=== PATIENT | male | born 1950 | race Caucasian/White ===

== ENCOUNTER → 2018-01-13 | Outpatient (CLI) | payer MEDICARE ==
[~2018-01-13] MED LIST: CODE30TA3 PO; CYCL-259 PO; DIAZ5TAB PO; FURO40TA6 PO; HYDR-3241 PO; LEVO500T47 PO; LISI-170 PO; METH4TAB2 PO; METO50TA82 PO; MORP-52 PO; NAPR250T PO; OMNIPAQUE 350 MG/ML, 100ML BOTTLE ONE; POTA10TA5 PO
== END | disposition home or self-care (01) ==
LOC: CFH 14:02
PROVIDERS: ATTEND Internal Medicine Cardiovascular Disease
DX: M48.54XA Collapsed vertebra, not elsewhere classified, thoracic region, initial encounter for fracture (principal); I37.1 Nonrheumatic pulmonary valve insufficiency; I10 Essential (primary) hypertension; E78.5 Hyperlipidemia, unspecified; Z95.2 Presence of prosthetic heart valve
CPT/HCPCS: 74175; 82565; 93306; Q9967

== ENCOUNTER 2019-01-10 05:56 | Emergency (ER) | payer MEDICARE ==
[~2019-01-10] VITALS: Ht 182.9 cm; Wt 90.0 kg
[~2019-01-10 05:56] MED LIST changes: +AMLO10TA8 PO; +ASPI-496 PO; +ATOR20TA37 PO; +CHOL40002 PO; +DOCU100T6 PO; +GABA300C10 PO; +LISI40TA PO; +MELO7.5T31 PO; -OMNIPAQUE 350 MG/ML, 100ML BOTTLE ONE; +OXYC5CAP2 PO; +TRAM50TA2 PO; +TRAZ-137 PO
[2019-01-10] MEDS ORDERED: FAMOTIDINE 20 MG/2 ML IV ONE (06:00)
[2019-01-10] MEDS ORDERED: SODIUM CHLORIDE 0.9% 1,000ML IVBOLUS ONE (06:00)
[2019-01-10] MEDS ORDERED: METOCLOPRAMIDE 5 MG/ML, 2ML IVPush ONE (06:00)
[2019-01-10] MEDS ORDERED: METOCLOPRAMIDE 5 MG/ML, 2ML ONE (06:05)
[2019-01-10] MEDS ORDERED: FAMOTIDINE 20 MG/2 ML ONE (06:05)
[2019-01-10 06:48] LABS: MEAN CORPUSCULAR HEMOGLOBIN 33.5 pg (27.5-34.5); MEAN CORPUSCULAR HGB CONC 33.1 g/dL (33.2-36.2); MEAN CORPUSCULAR VOLUME 101.3 fL (81-97); MEAN PLATELET VOLUME 6.9 fL (7.4-10.4); PLATELET COUNT 277 x10^3/uL (130-400); RED BLOOD COUNT 4.02 x10^6/uL (4.38-5.82); RED CELL DISTRIBUTION WIDTH 15.4 % (9.4-14.8)
--- NOTE | 2019-01-10 06:55 | NUR ---
Recieved report from MITALI Moctezuma. All questions answered. Assuming care of pt at this time.
--- NOTE | 2019-01-10 06:55 | NUR ---
PT WITH BEDSIDE CAMODE AND URINAL AT BEDSIDE. PT INFORMED OF THE NEED FOR STOOL AND URINE SAMPLES
[2019-01-10 07:01] LABS: ALANINE AMINOTRANSFERASE 14 U/L (12-78); ALBUMIN 3.3 g/dL (3.4-5.0); ANION GAP 8 mmol/L (5-15); CHLORIDE 107 mmol/L (98-107); CREATININE 1.07 mg/dL (0.7-1.3)
[2019-01-10 07:05] LABS: ALKALINE PHOSPHATASE 74 U/L (45-117); TOTAL PROTEIN 7.3 g/dL (6.4-8.2); TROPONIN I < 0.015 ng/mL (0.000-0.045)
[2019-01-10 07:19] VITALS: BP 174/82
[2019-01-10] MEDS ORDERED: MAALOX/HYOSCYAMINE/LIDOCAINE 45 ML BTL ONE (07:22)
[2019-01-10 07:23] LABS: BASOPHILS # (AUTO) 0.01 x10^3/uL (0-0.1); BASOPHILS % (AUTO) 0 % (0-1); EOSINOPHILS # (AUTO) 0.03 x10^3/uL (0-0.4); EOSINOPHILS % (AUTO) 0 % (1-7); LYMPHOCYTES # (AUTO) 0.22 x10^3/uL (1-3.4); LYMPHOCYTES % (AUTO) 2 % (22-44); MD SCAN; MONOCYTES % (AUTO) 3 % (2-9); NEUTROPHILS # (AUTO) 11.43 x10^3/uL (1.8-6.8); NEUTROPHILS % (AUTO) 95 % (42-75)
[2019-01-10] MEDS ORDERED: MAALOX/HYOSCYAMINE/LIDOCAINE 45 ML BTL PO ONE (07:30)
--- NOTE | 2019-01-10 07:34 | NUR ---
Provided pt medicaiton per EMAR for 10 "stomach pains" Pt sitting on gurney. No other needs expressed. Call light within reach.
--- NOTE | 2019-01-10 07:46 | NUR ---
Pt transported on [facility] to [facility].
[2019-01-10 07:51] LABS: MICROSCOPIC INDICATED
[2019-01-10 08:01] LABS: CULTURE INDICATED? NO
[2019-01-10] MEDS ORDERED: OMNIPAQUE 350 MG/ML, 100ML BOTTLE ONE (08:16)
--- NOTE | 2019-01-10 09:20 | NUR ---
Patient given discharge instructions and they have confirmed that they understand the instructions. Patient ambulatory with steady gait. Pt left with Rx, D/C paperwork, and all personal belongings. NADN. No other needs expressed.
== END 2019-01-10 09:23 | disposition home or self-care (01) ==
LOC: MERGE 05:56 → ED 06:29
DX: A08.4 Viral intestinal infection, unspecified (principal); I10 Essential (primary) hypertension; E78.00 Pure hypercholesterolemia, unspecified; Z87.891 Personal history of nicotine dependence; Z95.4 Presence of other heart-valve replacement
CPT/HCPCS: 36415; 74022; 74177; 80053; 81001; 83690; 84484; 85025; 93005; 96361; 96374; 96375; 99284; J2765; J3490; J7030; Q9967

== ENCOUNTER → 2019-12-23 | Outpatient (CLI) | payer MEDICARE ==
[~2019-12-23] MED LIST changes: +OMNIPAQUE 350 MG/ML, 100ML BOTTLE ONE; -TRAZ-137 PO; +TRAZ-175 PO
== END | disposition home or self-care (01) ==
LOC: CFH 12:05
PROVIDERS: ATTEND Internal Medicine Cardiovascular Disease
DX: I71.4 Abdominal aortic aneurysm, without rupture (principal)
CPT/HCPCS: 74175; 82565; Q9967